=== PATIENT | female | born 1985 | race Native Hawaiian/Other Pacific Islander ===

== ENCOUNTER 2018-05-31 17:07 | Observation (INO) ==
[2018-05-31] MEDS ORDERED: Famotidine PF Inj 20 MG/2 ML Vial IV.PUSH ONE (18:31)
[2018-05-31 19:19] LABS: Hematocrit 40.3 % (35.0-46.0); Hemoglobin 13.5 gm/dL (11.6-15.3); Mean Corpuscular HGB Conc 33.4 % (32.0-36.0); Mean Corpuscular Hemoglobin 30.2 pg (27.0-34.0); Mean Corpuscular Volume 90.4 fL (80.0-100.0); Mean Platelet Volume 10.2 fL (7.0-11.0); Platelet Count 189 th/mm3 (150-450); Red Blood Count 4.46 mil/mm3 (4.00-5.30); Red Cell Distribution Width 11.6 % (11.6-17.2); White Blood Count 7.1 th/mm3 (4.0-11.0)
[2018-05-31] MEDS: Sod Chloride 0.9% Inj 1,000 ML IV.SIG SCH ×2 (19:24→19:54)
[2018-05-31 19:25] LABS: Chloride 106 meq/L (98-107); Potassium 3.9 meq/L (3.5-5.1); Sodium 137 meq/L (136-145)
[2018-05-31 19:29] LABS: Albumin 3.8 g/dL (3.4-5.0); Anion Gap 6 meq/L (5-15); Blood Urea Nitrogen 5 mg/dL (7-18); Calcium 8.8 mg/dL (8.5-10.1); Carbon Dioxide 25.2 meq/L (21.0-32.0); Glucose,Random 101 mg/dL (74-106); Lipase 126 U/L (73-393)
[2018-05-31 19:32] LABS: Alanine Aminotransferase 15 U/L (10-53); Aspartate Aminotransferase 12 U/L (15-37); Glomerular Filtration Rate Greater Than 89 mL/min (>89)
[2018-05-31 19:34] LABS: Total Protein 7.7 g/dL (6.4-8.2)
[2018-05-31 19:35] LABS: Alkaline Phosphatase 54 U/L (45-117)
[2018-05-31 20:08] LABS: Bilirubin,Urine Negative (Negative); Clarity,Urine Clear (Clear); Color,Urine Yellow (Yellw/Straw); Glucose,Urine (UA) Negative (Negative); Leukocyte Esterase,Urine Negative (Negative); Nitrite,Urine Negative (Negative); Specific Gravity,Urine Less/Equal 1.005 (1.002-1.035); Urobilinogen,Urine 0.2 mg/dL (Less than 2)
[2018-05-31 20:12] LABS: WBC,Urine 0-5 /hpf (0-5)
[2018-05-31 20:13] LABS: Squamous Epithelial Cell,Urine 0-5 /hpf (0-5)
--- NOTE | 2018-05-31 20:15 | ED ---
HPI General Chief complaint: Nausea/Vomiting/Diarrhea Stated complaint: weakness/ n/v/d Time Seen by Provider: 05/31/18 18:22 Source: patient, family and old records reviewed Limitations: language barrier History of Present Illness HPI Narrative: Patient is a 32-year-old female who presents with complaint of nausea and vomiting almost daily for the last 1-2 weeks and watery diarrhea for the last 2 days. She has had some epigastric pain with this as well. This is her fourth visit to the emergency department in the last 2 weeks for the symptoms. At one time she was admitted and had an endoscopy done by Dr. Hill which showed gastritis. She was here several days ago where she had a CT which was unremarkable. MD complaint: Reports nausea, vomiting and diarrhea Onset (ago): week(s) Description of Vomiting: food contents and watery Description of Diarrhea: watery Associated Abdominal Pain: Yes Location of pain: Reports epigastric Severity: mild Quality: Reports aching Pain Consistency: intermittent Relieving factors: none Associated symptoms: Reports dysuria and fatigue Related Data Home Medications Medication Instructions Recorded Confirmed omeprazole magnesium [Prilosec OTC] 20 mg PO DAILY 05/31/18 05/31/18 Allergies Allergy/AdvReac Type Severity Reaction Status Date / Time No Known Allergies Allergy Verified 05/31/18 17:17 Review of Systems ROS: all other systems reviewed are negative [facility] Medical History Medical History Patient denies medical problems (Acute) Surgical History Surgical History No history of previous surgery (Acute) Social History Social History Substance History: No History of Abuse Second Hand Smoke Exposure: No Smoking Status: Never smoker How Often Do You Have a Drink Containing Alcohol: Never Recent Travel in [facility] [[email or web address]] within the Last 8 Weeks: No Recent Out of Country Travel within the Last 8 Weeks: No Immunization History Tetanus Immunization: Unsure Exam Narrative Exam Narrative: GENERAL: Chronically but not acutely ill appearing female in no acute distress SKIN: Focused skin assessment warm/dry. HEAD: Atraumatic. Normocephalic. EYES: Pupils equal and round. No scleral icterus. No injection or drainage. ENT: No nasal bleeding or discharge. Mucous membranes pink and moist. NECK: Trachea midline. No JVD. CARDIOVASCULAR: Regular rate and rhythm. No murmur appreciated. Intact and equal peripheral pulses. RESPIRATORY: No accessory muscle use. Clear to auscultation. Breath sounds equal bilaterally. GASTROINTESTINAL: Abdomen soft, non-tender, nondistended. Hepatic and splenic margins not palpable. No CVA tenderness. MUSCULOSKELETAL: No obvious deformities. No clubbing. No cyanosis. No edema. NEUROLOGICAL: Awake and alert. No obvious cranial nerve deficits. Motor grossly within normal limits. PSYCHIATRIC: Appropriate mood and affect; insight and judgment normal. Course Initial Documented Vital Signs Temperature 98.1 F 05/31/18 17:18 Pulse Rate 92 H 05/31/18 17:18 Respiratory Rate 16 05/31/18 17:18 Blood Pressure 113/62 05/31/18 17:18 Pulse Oximetry 99 05/31/18 17:18 Last Documented Vital Signs Temperature 98.1 F 05/31/18 17:18 Pulse Rate 90 05/31/18 20:57 Respiratory Rate 18 05/31/18 20:57 Blood Pressure 110/75 05/31/18 20:57 Pulse Oximetry 99 05/31/18 20:57 Medical Decision Making MDM Narrative Medical decision making narrative: Patient is a 32-year-old female who presents with complaint of persistent nausea and vomiting for the last 1-2 weeks now with diarrhea for the last 2 days. She is afebrile and hemodynamically stable. She has been given Zofran and 2 L of fluid after which she also required Reglan. Labs are relatively unremarkable. I spoke with her drying unit felting machine operator , Dr. Hill, who thought she should probably be admitted for rehydration. I spoke with Dr. Alvarez, hospitalist field service consultant, who agreed to the admission. Medical Screen Exam Complete: Yes Emergency Medical Condition: Yes Medical Records Medical records reviewed: Yes I reviewed the patient's medical records. Lab Data Lab results reviewed: Yes I reviewed the patient's lab results. Result diagrams: 05/31/18 19:10 05/31/18 19:10 POC Results POC Urine Results Negative Lab Results 05/31/18 05/31/18 05/31/18 Range/Units 19:10 19:10 19:45 WBC 7.1 (4.0-11.0) th/mm3 RBC 4.46 (4.00-5.30) mil/mm3 Hgb 13.5 (11.6-15.3) gm/dL Hct 40.3 (35.0-46.0) % MCV 90.4 (80.0-100.0) fL MCH 30.2 (27.0-34.0) pg MCHC 33.4 (32.0-36.0) % RDW 11.6 (11.6-17.2) % Plt Count 189 (150-450) th/mm3 MPV 10.2 (7.0-11.0) fL Sodium 137 (136-145) meq/L Potassium 3.9 (3.5-5.1) meq/L Chloride 106 (98-107) meq/L Carbon Dioxide 25.2 (21.0-32.0) meq/L Anion Gap 6 (5-15) meq/L BUN 5 L (7-18) mg/dL Creatinine 0.60 (0.50-1.00) mg/dL Estimated GFR Greater than 89 (>89) mL/min Random Glucose 101 (74-106) mg/dL Calcium 8.8 (8.5-10.1) mg/dL Total Bilirubin 0.4 (0.2-1.0) mg/dL AST 12 L (15-37) U/L ALT 15 (10-53) U/L Alkaline Phosphatase 54 (45-117) U/L Total Protein 7.7 (6.4-8.2) g/dL Albumin 3.8 (3.4-5.0) g/dL Lipase 126 (73-393) U/L Urine Color Yellow (Yellw/Straw) Urine Clarity Clear (Clear) Urine pH 6.0 (5.0-8.5) Ur Specific [place] Less/equal 1.005 (1.002-1.035) Urine Protein Negative (Neg-Trace) mg/dL Urine Glucose (UA) Negative (Negative) mg/dL Urine Ketones Trace H (Negative) mg/dL Urine Occult Blood Moderate H (Negative) Urine Nitrate Negative (Negative) Urine Bilirubin Negative (Negative) Urine Urobilinogen 0.2 (Less than 2) mg/dL Ur Leukocyte Esterase Negative (Negative) Urine RBC 4-15 H (0-3) /hpf Urine WBC 0-5 (0-5) /hpf Ur Squamous Epith Cells 0-5 (0-5) /hpf Micro UA Comment Culture not ind Ur Microscopic Review Microscopic reviewed Urine Culture Comments Culture not ind Discharge Plan Discharge Disposition Patient Disposition: ED Admit(ED Internal Use Only) Discharge Condition Condition: Stable Discharge Order Discharge Orders: ED Use Only Admit Order (Routine); Ordered 05/31/18 Ordered By: Audrey Morejon Discharge Details Diagnosis: Nausea & vomiting Physicians Team ED Provider: Audrey Morejon Primary Care Provider: Primary Care Stefani Wood Attending Provider: Erin Alvarez Other Providers: Jacky Horton Discharge Interventions Interventions: Vital Signs Last Done: 05/31/18 20:57 Status ED Status: Admitted Observation Patient
[2018-05-31] MEDS ORDERED: Aluminum/Magnesium/Simethacone Susp 30 ML UDC PO ONE (20:42)
[2018-05-31] MEDS ORDERED: Bisacodyl 10 MG Supp RECTAL PRN (20:55)
[2018-05-31] MEDS ORDERED: Acetaminophen 325 MG Tablet PO PRN (20:55)
[2018-05-31] MEDS ORDERED: Morphine Sulfate Inj 2 MG/ML Vial IV.PUSH PRN (20:55)
[2018-05-31] MEDS: Sod Chloride 0.9% Inj 1,000 ML IV.CONT SCH (21:29)
[2018-05-31] MEDS: Pantoprazole Inj 40 MG Vial IV.PUSH SCH (21:30)
[2018-06-01 06:24] LABS: Baso # (Auto) 0.1 th/mm3 (0.0-0.2); Baso % (Auto) 0.8 % (0.0-2.0); Eos % (Auto) 0.3 % (0.0-4.0); Hematocrit 34.2 % (35.0-46.0); Hemoglobin 11.7 gm/dL (11.6-15.3); Lymph # (Auto) 1.7 th/mm3 (1.0-4.8); Lymph % (Auto) 21.3 % (9.0-44.0); Mean Corpuscular HGB Conc 34.1 % (32.0-36.0); Mean Corpuscular Hemoglobin 31.2 pg (27.0-34.0); Mean Corpuscular Volume 91.7 fL (80.0-100.0); Mean Platelet Volume 11.6 fL (7.0-11.0); Mono # (Auto) 0.6 th/mm3 (0.0-0.9); Mono % (Auto) 7.4 % (0.0-8.0); Neut # (Auto) 5.5 th/mm3 (1.8-7.7); Neut % (Auto) 70.2 % (16.0-70.0); Platelet Count 150 th/mm3 (150-450); Red Blood Count 3.73 mil/mm3 (4.00-5.30); Red Cell Distribution Width 12.1 % (11.6-17.2); White Blood Count 7.9 th/mm3 (4.0-11.0)
[2018-06-01 06:26] LABS: Chloride 113 meq/L (98-107); Potassium 3.8 meq/L (3.5-5.1); Sodium 141 meq/L (136-145)
[2018-06-01 07:09] LABS: Alanine Aminotransferase 12 U/L (10-53); Alkaline Phosphatase 43 U/L (45-117); Anion Gap 5 meq/L (5-15); Aspartate Aminotransferase 12 U/L (15-37); Blood Urea Nitrogen 2 mg/dL (7-18); Calcium 7.8 mg/dL (8.5-10.1); Carbon Dioxide 23.4 meq/L (21.0-32.0); Glomerular Filtration Rate Greater Than 89 mL/min (>89); Glucose,Random 100 mg/dL (74-106)
[2018-06-01 07:10] LABS: Albumin 3.1 g/dL (3.4-5.0)
[2018-06-01] MEDS: Pantoprazole Inj 40 MG Vial IV.PUSH SCH ×2 (08:05→21:09)
[2018-06-01] MEDS: Sod Chloride 0.9% Inj 1,000 ML IV.CONT SCH ×2 (08:10→18:29)
--- NOTE | 2018-06-01 08:10 | P.CONGI ---
History of Present Illness Consult date: 06/01/18 Consult reason: Nausea vomiting Chief complaint: Intractable N/V History of Present Illness: Patient is a pleasant 32-year-old female who is being seen for evaluation of nausea and vomiting her at bedside providing most of the information apparently she started off with flulike symptoms about 2 weeks ago and this persisted and intensified she was seen by our office late last week and underwent an upper endoscopy according to the she had gastritis but not enough findings to explain her intractable nausea and vomiting and apparently she ended up in the emergency room on Friday she had a CT of the abdomen that was unremarkable and again last night this time with complaints of nausea and vomiting and excessive diarrhea the tells me over the past 2 days she has had about 40 bowel movements all loose liquidy and the past couple of days they have seen some blood but not extensively the patient also reports occasional chills but no fever she denies any abdominal pain but she does have upper abdominal discomfort with some heartburn and reflux she has been taking Prilosec which has not really helped a whole lot Review of Systems A 12 system review is otherwise unremarkable [facility] - History History Provided By: Patient, Significant Other - Medical History Medical History: Medical History (Last Reviewed 05/31/18 @ 20:14 by Audrey Morejon MD) Patient denies medical problems - Surgical History Surgical History: Surgical History (Last Reviewed 05/31/18 @ 20:14 by Audrey Morejon MD) No history of previous surgery - Tobacco History Second Hand Smoke Exposure: No Smoking Status: Never smoker - Alcohol History How Often Do You Have a Drink Containing Alcohol: Never - Substance Use History Substance History: No History of Abuse - Travel History Recent Travel in the [place] Within the Last 8 Weeks: No Recent Travel Out of the Country Within the Last 8 Weeks: No - Immunization History Tetanus Immunization: Unsure Medications and Allergies Active Medications: Active Medications Acetaminophen (Tylenol) 650 mg PO Q4H PRN PRN Reason: Temp > 100.4 Al Hydroxide/Mg Hydroxide (Milk Of Magnesia Liq) 30 ml PO Q12H PRN PRN Reason: Mild Constipation Bisacodyl (Dulcolax Supp) 10 mg RECTAL DAILY PRN PRN Reason: SEVERE CONSITIPATION Sodium Chloride (Ns Inj) 1,000 mls @ 100 mls/hr IV.CONT .Q10H ERIN Last Infusion: 06/01/18 07:00 Dose: 100 mls/hr Lactulose (Lactulose Liq) 30 ml PO DAILY PRN PRN Reason: SEVERE CONSITIPATION Morphine Sulfate (Morphine Inj) 2 mg IV.PUSH Q4H PRN PRN Reason: PAIN SCALE 6 TO 10 Ondansetron HCl (Zofran Inj) 4 mg IV.PUSH Q6H PRN PRN Reason: NAUSEA OR VOMITING Last Admin: 06/01/18 03:29 Dose: 4 mg Pantoprazole Sodium (Protonix Inj) 40 mg IV.PUSH Q12H ERIN Last Admin: 05/31/18 21:30 Dose: 40 mg Prochlorperazine Edisylate (Compazine Inj) 10 mg IV.PUSH Q6H PRN PRN Reason: NAUSEA/VOMITING Sennosides (Senokot) 17.2 mg PO Q12H PRN PRN Reason: Moderate Constipation Sodium Chloride (Ns Flush) 2 ml IV.FLUSH BID ERIN Last Admin: 06/01/18 08:03 Dose: Not Given Sodium Chloride (Ns Flush) 2 ml IV.FLUSH PRN PRN PRN Reason: FLUSH AFTER USING IV ACCESS Allergies Allergy/AdvReac Type Severity Reaction Status Date / Time No Known Allergies Allergy Verified 05/31/18 17:17 Home Medications Medication Instructions Recorded Confirmed Type omeprazole magnesium [Prilosec OTC] 20 mg PO DAILY 05/31/18 05/31/18 History Exam Vital signs: Vital Signs 05/31/18 17:18 05/31/18 18:46 05/31/18 20:57 Temperature 98.1 F Pulse Rate 92 H 76 90 Respiratory Rate 16 16 18 Blood Pressure 113/62 108/77 110/75 Pulse Oximetry 99 100 99 05/31/18 22:33 06/01/18 00:00 Temperature 97.6 F Pulse Rate 88 88 Respiratory Rate 18 16 Blood Pressure 112/70 108/62 Pulse Oximetry 98 99 Intake & Output 05/31/18 06/01/18 06/01/18 18:59 06:59 18:59 Intake Total 1999 823 / 823 Balance 1999 823 / 823 Weight 49.3 kg 51.1 kg Intake: IV 1999 823 / 823 NS Inj 1,000 ML @ 100 mls/hr IV 823 / 823 .CONT .Q10H ERIN Rx#:[id number] NS Inj 1,000 ML @ 2000 mls/hr 1999 IV.SIG Q30M [facility] Rx#:[id number] Other: Date of Last Bowel Movement 05/31/18 06/01/18 # Bowel Movements 1 Weight On Admission 51.1 kg - Constitutional no acute distress - Routine HEENT Exam Head: Present: normocephalic, atraumatic Eye: Present: EOMI, PERRL, conjunctivae pink. Absent: conjunctival icterus ENT: Present: mucous membranes moist - Routine Neck Exam Present: supple. Absent: JVD, carotid bruit - Routine Respiratory Exam Present: CTA bilaterally. Absent: accessory muscle use - Routine Cardiovascular Exam Present: RRR, S1, S2. Absent: murmur, gallop, rubs - Routine Abdominal Exam Present: soft, normoactive bowel sounds. Absent: tenderness, distended, rebound , organomegaly - Routine Extremities Exam Absent: cyanosis, clubbing, edema - Routine Skin Exam Present: dry, warm. Absent: cyanosis - Routine Neurological Exam Present: alert, oriented X3 Results - Labs CBC & Chem 7: 06/01/18 05:55 06/01/18 05:55 Labs: Laboratory Results - last 24 hr 05/31/18 05/31/18 05/31/18 19:10 19:10 19:45 CBC w Diff WBC 7.1 RBC 4.46 Hgb 13.5 Hct 40.3 MCV 90.4 MCH 30.2 MCHC 33.4 RDW 11.6 Plt Count 189 MPV 10.2 Neut % (Auto) Lymph % (Auto) [place] % (Auto) Eos % (Auto) Baso % (Auto) Neut # (Auto) Lymph # (Auto) [place] # (Auto) Eos # (Auto) Baso # (Auto) WBC Differential Differential Comment Sodium 137 Potassium 3.9 Chloride 106 Carbon Dioxide 25.2 Anion Gap 6 BUN 5 L Creatinine 0.60 Estimated GFR Greater than 89 Random Glucose 101 Calcium 8.8 Total Bilirubin 0.4 AST 12 L ALT 15 Alkaline Phosphatase 54 Total Protein 7.7 Albumin 3.8 Lipase 126 Urine Color Yellow Urine Clarity Clear Urine pH 6.0 Ur Specific [place] Less/equal 1.005 Urine Protein Negative Urine Glucose (UA) Negative Urine Ketones Trace H Urine Occult Blood Moderate H Urine Nitrate Negative Urine Bilirubin Negative Urine Urobilinogen 0.2 Ur Leukocyte Esterase Negative Urine RBC 4-15 H Urine WBC 0-5 Ur Squamous Epith Cells 0-5 Micro UA Comment Culture not ind Ur Microscopic Review Microscopic reviewed Urine Culture Comments Culture not ind Eosinophil Stool Smear 05/31/18 06/01/18 06/01/18 21:30 05:55 05:55 CBC w Diff Auto diff final WBC 7.9 RBC 3.73 L Hgb 11.7 Hct 34.2 L MCV 91.7 MCH 31.2 MCHC 34.1 RDW 12.1 Plt Count 150 MPV 11.6 H Neut % (Auto) 70.2 H Lymph % (Auto) 21.3 [place] % (Auto) 7.4 Eos % (Auto) 0.3 Baso % (Auto) 0.8 Neut # (Auto) 5.5 Lymph # (Auto) 1.7 [place] # (Auto) 0.6 Eos # (Auto) 0.0 Baso # (Auto) 0.1 WBC Differential . Differential Comment . Sodium 141 Potassium 3.8 Chloride 113 H Carbon Dioxide 23.4 Anion Gap 5 BUN 2 L Creatinine 0.54 Estimated GFR Greater than 89 Random Glucose 100 Calcium 7.8 L D Total Bilirubin 0.4 AST 12 L ALT 12 Alkaline Phosphatase 43 L Total Protein 6.0 L D Albumin 3.1 L D Lipase Urine Color Urine Clarity Urine pH Ur Specific [place] Urine Protein Urine Glucose (UA) Urine Ketones Urine Occult Blood Urine Nitrate Urine Bilirubin Urine Urobilinogen Ur Leukocyte Esterase Urine RBC Urine WBC Ur Squamous Epith Cells Micro UA Comment Ur Microscopic Review Urine Culture Comments Eosinophil Stool Smear None seen Assessment and Plan - Plan Patient presenting with complaints of nausea vomiting and lately diarrhea Recent upper endoscopy reveals gastritis otherwise unremarkable CT of the abdomen is negative also the gallbladder and blood work is also unremarkable At this point we will pursue stool studies to further evaluate and investigate the diarrhea We will obtain a small bowel follow-through And we will consider a colonoscopy if all else is negative In the meanwhile continue with current supportive care with hydration correct electrolytes and treatment with anti-emetics
--- NOTE | 2018-06-01 10:24 | P.HPIM ---
History of Present Illness Primary Care Physician: No Primary Care Physician Chief Complaint: Abdominal pain, nausea, vomiting, diarrhea History of Present Illness: 32-year-old female with rather complicated case. Patient does not speak much Irish. Most information was taken from the at bedside. Apparently about 2 weeks ago the patient had an upper respiratory virus in which they use [id number] cold medicine and patient tolerated the treatment well and then about 3 days after the initial onset of the upper respiratory symptoms she had an episode of nausea vomiting and [place] better after that. However, patient started developing generalized abdominal pain with nausea, vomiting and this persisted where she is visited the ER a few times had multiple workups done. Patient also had endoscopy performed by Dr. Hill. Which it was indicated that patient had gastritis. Patient did not improved. Having difficulty eating, drinking. Had persistent and intractable nausea, vomiting and started developing diarrhea. Is indicated the patient had at least 50 bowel movements over the last 48 hours. The patient came back to the emergency department for evaluation is recommended that the patient be observed in the hospital for further evaluation and management S neurologist was consulted for further recommendations. Upon evaluating the patient she is sitting up in bed. Looks mildly uncomfortable. Appears to be belching a lot. There is no indication of any hematemesis, hematochezia, melena. No recent travel. Review of Systems Review of Systems: all other systems reviewed are negative Gastrointestinal: Reports abdominal pain, Reports belching, Reports diarrhea and Reports vomiting PMFSH Medical History Medical History Patient denies medical problems (Acute) Surgical History Surgical History No history of previous surgery (Acute) Social History Social History Substance History: No History of Abuse Second Hand Smoke Exposure: No Smoking Status: Never smoker How Often Do You Have a Drink Containing Alcohol: Never Recent Travel in [facility] within the Last 8 Weeks: No Recent Out of Country Travel within the Last 8 Weeks: No Immunization History Tetanus Immunization: Unsure Medications and Allergies Allergies Allergy/AdvReac Type Severity Reaction Status Date / Time No Known Allergies Allergy Verified 05/31/18 17:17 Home Medications Medication Instructions Recorded Confirmed Type omeprazole magnesium [Prilosec OTC] 20 mg PO DAILY 05/31/18 05/31/18 History Active Medications: Active Medications Acetaminophen (Tylenol) 650 mg PO Q4H PRN PRN Reason: Temp > 100.4 Al Hydroxide/Mg Hydroxide (Milk Of Magnesia Liq) 30 ml PO Q12H PRN PRN Reason: Mild Constipation Bisacodyl (Dulcolax Supp) 10 mg RECTAL DAILY PRN PRN Reason: SEVERE CONSITIPATION Sodium Chloride (Ns Inj) 1,000 mls @ 100 mls/hr IV.CONT .Q10H [facility] Last Admin: 06/01/18 08:10 Dose: 100 mls/hr Lactulose (Lactulose Liq) 30 ml PO DAILY PRN PRN Reason: SEVERE CONSITIPATION Morphine Sulfate (Morphine Inj) 2 mg IV.PUSH Q4H PRN PRN Reason: PAIN SCALE 6 TO 10 Ondansetron HCl (Zofran Inj) 4 mg IV.PUSH Q6H PRN PRN Reason: NAUSEA OR VOMITING Last Admin: 06/01/18 03:29 Dose: 4 mg Pantoprazole Sodium (Protonix Inj) 40 mg IV.PUSH Q12H [facility] Last Admin: 06/01/18 08:05 Dose: 40 mg Prochlorperazine Edisylate (Compazine Inj) 10 mg IV.PUSH Q6H PRN PRN Reason: NAUSEA/VOMITING Sennosides (Senokot) 17.2 mg PO Q12H PRN PRN Reason: Moderate Constipation Sodium Chloride (Ns Flush) 2 ml IV.FLUSH BID [facility] Last Admin: 06/01/18 08:03 Dose: Not Given Sodium Chloride (Ns Flush) 2 ml IV.FLUSH PRN PRN PRN Reason: FLUSH AFTER USING IV ACCESS Physical Exam Vital signs: Vital Signs 05/31/18 17:18 05/31/18 18:46 05/31/18 20:57 Temperature 98.1 F Pulse Rate 92 H 76 90 Respiratory Rate 16 16 18 Blood Pressure 113/62 108/77 110/75 Pulse Oximetry 99 100 99 05/31/18 22:33 06/01/18 00:00 06/01/18 08:00 Temperature 97.6 F 98.0 F Pulse Rate 88 88 76 Respiratory Rate 18 16 18 Blood Pressure 112/70 108/62 108/71 Pulse Oximetry 98 99 98 Intake & Output 05/31/18 06/01/18 06/01/18 18:59 06:59 18:59 Intake Total 1999 Balance 1999 Weight 49.3 kg 51.1 kg Intake: IV 1999 NS Inj 1,000 ML @ 100 mls/hr IV 1822 .CONT .Q10H [facility] Rx#:[id number] NS Inj 1,000 ML @ 2000 mls/hr 1999 IV.SIG Q30M [facility] Rx#:[id number] Other: Date of Last Bowel Movement 05/31/18 06/01/18 06/01/18 # Bowel Movements 1 2 Weight On Admission 51.1 kg Narrative: GENERAL: Well-developed, well-nourished, patient appears to be in mild abdominal discomfort. Sitting up in bed with increased belching. alert and orientated HEENT: Head is normocephalic without any lesions or masses noted. Facial features are symmetric. Eyes: Pupils equal round reactive to light. Extraocular muscles are intact. Conjunctivae were clear. Oropharyngeal: Pharynx without any erythema edema. Tongue is midline without deviation. Buccal mucosa is moist without any masses or lesions NECK: Supple without any masses. Trachea midline no deviation. No JVD, no bruits are appreciated CARDIAC: Regular rhythm, regular rate. S1/S2 are heard. No murmurs gallops or rubs. LUNGS: Clear to auscultation bilaterally. No wheeze, rhonchi or rales. No use of accessory muscles on inspiration or expiration. ABDOMEN: Soft, mild tenderness noted in the right lower quadrant. Nondistended. Bowel sounds heard in all 4 quadrants. No organomegaly or masses. Negative rebound, negative guarding EXTREMITIES: No edema, pulses are equal bilaterally. No cyanosis or clubbing NEUROLOGY: Mood and affect appear appropriate. Cranial nerves II through XII grossly intact. Muscle strength 5/5 in upper and lower extremities bilaterally. Deep tendon reflexes are 2+ in upper and lower extremities bilaterally. Results Labs CBC & Chem 7: 06/01/18 05:55 06/01/18 05:55 Caprini VTE Risk Assessment Caprini VTE Risk Assessment: No/Low Risk (score <= 1) Caprini Risk Assessment Model: Point Value = 1 Point Value = 2 Point Value = 3 Point Value = 5 Age 41-60 Minor surgery BMI > 25 kg/m2 Swollen legs Varicose veins or History of unexplained or recurrent spontaneous Oral contraceptives or hormone replacement Sepsis (< 1 month) Serious lung disease, including pneumonia (< 1 month) Abnormal pulmonary function Acute myocardial infarction Congestive heart failure (< 1 month) History of inflammatory bowel disease Medical patient at bed rest Age 61-74 Arthroscopic surgery Major open surgery (> 45 min) Laparoscopic surgery (> 45 min) Malignancy Confined to bed (> 72 hours) Immobilizing plaster cast Central venous access Age >= 75 History of VTE Family history of VTE Factor V Leiden Prothrombin [id number] Lupus anticoagulant Anticardiolipin antibodies Elevated serum homocysteine Heparin-induced thrombocytopenia Other congenital or acquired thrombophilia Stroke (< 1 month) Elective arthroplasty Hip, pelvis, or leg fracture Acute spinal cord injury (< 1 month) Prophylaxis Regimen: Total Risk Factor Score Risk Level Prophylaxis Regimen 0-1 Low Early ambulation 2 Moderate Order ONE of the following: *Sequential Compression Device (SCD) *Heparin 5000 units SQ BID 3-4 Higher Order ONE of the following medications: *Heparin 5000 units SQ TID *Enoxaparin/Lovenox 40 mg SQ daily (WT < 150 kg, CrCl > 30 mL/min) *Enoxaparin/Lovenox 30 mg SQ daily (WT < 150 kg, CrCl > 10-29 mL/min) *Enoxaparin/Lovenox 30 mg SQ BID (WT < 150 kg, CrCl > 30 mL/min) AND/OR *Sequential Compression Device (SCD) 5 or more Highest Order ONE of the following medications: *Heparin 5000 units SQ TID (Preferred with Epidurals) *Enoxaparin/Lovenox 40 mg SQ daily (WT < 150 kg, CrCl > 30 mL/min) *Enoxaparin/Lovenox 30 mg SQ daily (WT < 150 kg, CrCl > 10-29 mL/min) *Enoxaparin/Lovenox 30 mg SQ BID (WT < 150 kg, CrCl > 30 mL/min) AND *Sequential Compression Device (SCD) Assessment and Plan Plan Abdominal pain with intractable nausea, vomiting, diarrhea Patient has had upper endoscopy performed with gastritis CT scan, liver ultrasound, all have been unremarkable for any etiology Laboratory studies do not indicate any abnormality Stool studies for any infectious process has been requested by parking patroller Small bowel follow-through has been requested to evaluate for any etiology of her symptoms If workup is negative, parking patroller anticipate performing colonoscopy Continue IV fluids, antiemetics DVT prevention Sequential compression devices Discussed Condition With: Patient, , Dr. Horton, Dr. Peña H&P: Quality VTE Deep Vein Thrombosis/Pulmonary Embolism Present on Admission: No
--- NOTE | 2018-06-01 14:10 | FL ---
EXAM DATE: 06/01/2018 1:49 PM EST AGE/SEX: 32 years / Female INDICATIONS: Patient presents with nausea and vomiting for 2 weeks, no prior history. CLINICAL DATA: This is the patient's initial encounter. Patient reports that signs and symptoms have been present for 2 weeks and indicates a pain score of 7/10. MEDICAL/SURGICAL HISTORY: None. None. COMPARISON: [facility], CT ABDOMEN & PELVIS W/O CONTRAST, 05/29/2018. . FLUORO TIME: 3.4 minutes. IMAGE COUNT: 11 RADIATION DOSE: 9.37 DAP FINDINGS: Preliminary film is unremarkable. Examination of the swallowing function demonstrates no evidence of aspiration or penetration. The cecilia dy of the esophagus is unremarkable. No reflux or hiatal hernia is identified. Examination of the stomach demonstrates no evidence of intraluminal mass or extrinsic compression. T he gastric volume appears normal and there are no findings of ulceration. The mucosal pattern appear s normal. The duodenal bulb and sweep appear benign with a single tiny diverticulum seen in the third portion. The visualized small bowel is unremarkable. Small bowel transit is subjectively rapid and barium con trast has reached the rectum as of the 30 minute KUB CONCLUSION: Focally unremarkable upper GI and small bowel series with subjectively rapid bowel transit Electronically signed by: Héctor Crisostomo MD Board Certified Radiologist 06/01/2018 2:09 PM EST
[2018-06-01] MEDS ORDERED: PEG 3350/E-Lyte Soln 4000 ML Bottle PO ONE (21:00)
[2018-06-02] MEDS: Sod Chloride 0.9% Inj 1,000 ML IV.CONT SCH ×2 (04:48→15:48)
--- NOTE | 2018-06-02 07:37 | P.PCN ---
Date of procedure: 06/02/18 Pre-op diagnosis: Diarrhea Procedure: PROCEDURE PERFORMED Colonoscopy with biopsy PROCEDURE: The procedure, risks and benefits were discussed with Patient/POA and informed consent was obtained. Anesthesia sedated Patient with Diprivan. Patient was placed in the left lateral decubitus position. Colonoscopy: The Pentax videoscope was introduced through the rectum and advanced to cecum where the ileocecal valve and appendiceal orifice were identified. Retroflexion was performed in the rectum. Colonic prep was fair FINDINGS: Colonic withdrawal time greater than 6 minutes. As the scope was slowly withdrawn colonic mucosa was carefully inspected the scope was also advanced into the terminal ileum there was some mild patchy erythema noted in the terminal ileum of unclear significance this was biopsied otherwise colonoscopy was unremarkable within normal limits all the way through from cecum to rectum with no mucosal abnormalities random biopsies were taken from the ascending and descending colon retroflexion was also performed in the rectum and this was unremarkable and so was rectal examination ESTIMATED BLOOD LOSS: None SPECIMENS REMOVED: Terminal ileal biopsies and colon biopsies COMPLICATIONS: None IMPRESSION: Mild patchy erythema of the terminal ileum of unclear significance Normal colonoscopy PLAN: Await biopsies Advance diet as tolerated Continue with antiemetics and antidiarrheal medications such as Imodium or Lomotil Follow-up with GI post discharge If patient is able to tolerate intake she may be discharged from a GI perspective to follow-up in clinic Anesthesia: BILLY Surgeon: Jacky Horton Condition: stable Disposition: floor
[2018-06-02] MEDS: Pantoprazole Inj 40 MG Vial IV.PUSH SCH ×2 (08:36→22:45)
--- NOTE | 2018-06-02 10:10 | P.PNIM ---
Subjective Interval history: Follow up ab pain, nausea and vomiting. Patient seen and examined, at bedside and assisting with translating. States she feels nauseous after colonoscopy and attempting PO intake. RN to give antiemetics. OK to DC if tolerating PO intake. Still complaints of some epigastric burning. VSS. Physical Exam Vital signs: Vital Signs 06/01/18 11:52 06/01/18 16:00 06/01/18 20:00 Temperature 97.7 F 97.8 F 98.3 F Pulse Rate 73 96 H 76 Respiratory Rate 18 18 18 Blood Pressure 119/71 112/70 116/75 Pulse Oximetry 97 98 98 06/02/18 00:00 06/02/18 06:41 06/02/18 07:39 Temperature 97.6 F 98.2 F 98.3 F Pulse Rate 67 113 H 60 Respiratory Rate 18 20 16 Blood Pressure 121/78 123/77 108/73 Pulse Oximetry 97 99 97 06/02/18 07:44 06/02/18 07:51 06/02/18 08:40 Temperature 96.0 F L Pulse Rate 59 L 57 L 60 Respiratory Rate 16 16 14 Blood Pressure 114/69 108/69 109/52 L Pulse Oximetry 98 98 100 Intake & Output 06/01/18 06/02/18 06/02/18 18:59 06:59 18:59 Intake Total 2735 / 2735 4000 / 4000 800 / 800 Balance 2735 / 2735 4000 / 4000 800 / 800 Weight 55.1 kg Intake: IV 2735 / 2735 1000 / 1000 NS Inj 1,000 ML @ 100 mls/hr IV 2735 / 2735 1000 / 1000 .CONT .Q10H [facility] Rx#:[id number] Oral 3000 / 3000 Anesthesia Amount 800 / 800 Other: # Voids 8 4 Date of Last Bowel Movement 06/01/18 06/01/18 # Bowel Movements 10 7 Narrative: GENERAL: Well-developed, well-nourished, lying in bed with ab pain and nausea. HEENT: Head is normocephalic without any lesions or masses noted. Facial features are symmetric. Eyes: Pupils equal round reactive to light. Extraocular muscles are intact. Conjunctivae were clear. Oropharyngeal: Pharynx without any erythema edema. Tongue is midline without deviation. Buccal mucosa is moist without any masses or lesions NECK: Supple without any masses. Trachea midline no deviation. No JVD, no bruits are appreciated CARDIAC: Regular rhythm, regular rate. S1/S2 are heard. No murmurs gallops or rubs. LUNGS: Clear to auscultation bilaterally. No wheeze, rhonchi or rales. No use of accessory muscles on inspiration or expiration. ABDOMEN: Soft, mild tenderness noted in the right lower quadrant. Nondistended. Bowel sounds heard in all 4 quadrants. No organomegaly or masses. Negative rebound, negative guarding EXTREMITIES: No edema, pulses are equal bilaterally. No cyanosis or clubbing NEUROLOGY: Mood and affect appear appropriate. Cranial nerves II through XII grossly intact. Muscle strength 5/5 in upper and lower extremities bilaterally. Deep tendon reflexes are 2+ in upper and lower extremities bilaterally. Results Labs CBC & Chem 7: 06/01/18 05:55 06/01/18 05:55 Labs: Microbiology 06/01/18 09:46 Stool Enteric Pathogens (PCR) - Final No enteric pathogens detected by PCR (No Salmonella sp., Shigella sp., Campylobacter sp., Yersinia enterocolitica, Vibrio sp., Norovirus, or EHEC (Shiga Toxin 1 or Shiga Toxin 2) detected. 05/31/18 21:30 Stool Stool for WBCs - Final Few WBC's Imaging Imaging: Impressions Upper GI and Small Bowel X-Ray 06/01/18 00:00 CONCLUSION: Focally unremarkable upper GI and small bowel series with subjectively rapid bowel transit Assessment and Plan Plan Abdominal pain with intractable nausea, vomiting, diarrhea Patient has had upper endoscopy performed with gastritis CT scan, liver ultrasound, all have been unremarkable for any etiology Laboratory studies do not indicate any abnormality Stool studies for any infectious process has been requested by sales and marketing engineer, pending. Small bowel follow-through negative. -Colonoscopy this morning showing Mild patchy erythema of the terminal ileum of unclear significance. If tolerating food OK to be DCd. F/u outpatient. Continue IV fluids, antiemetics DVT prevention Sequential compression devices Discussed Condition With: Patient, , Dr. Ballesteros. Progress Note: Quality VTE Deep Vein Thrombosis/Pulmonary Embolism Present on Admission: No
[2018-06-02] MEDS ORDERED: Diphenoxylate/Atropine 2.5/0.025 MG Tablet PO PRN (10:20)
[2018-06-02] MEDS ORDERED: Sucralfate 1 GM Tablet PO ONE (12:00)
[2018-06-02 12:31] VITALS: RESP 16
[2018-06-02] MEDS ORDERED: Promethazine 12.5 MG Supp RECTAL PRN (16:45)
[2018-06-03 05:09] VITALS: BP 111/70; PULSE 63; TEMP 97.4; O2SAT 100
[2018-06-03 05:23] LABS: Hematocrit 34.1 % (35.0-46.0); Hemoglobin 11.6 gm/dL (11.6-15.3); Mean Corpuscular HGB Conc 34.2 % (32.0-36.0); Mean Corpuscular Hemoglobin 30.8 pg (27.0-34.0); Mean Corpuscular Volume 90.1 fL (80.0-100.0); Mean Platelet Volume 10.9 fL (7.0-11.0); Platelet Count 178 th/mm3 (150-450); Red Blood Count 3.79 mil/mm3 (4.00-5.30); Red Cell Distribution Width 12.1 % (11.6-17.2)
[2018-06-03 05:26] LABS: Chloride 110 meq/L (98-107); Potassium 3.5 meq/L (3.5-5.1); Sodium 143 meq/L (136-145)
[2018-06-03 05:28] LABS: White Blood Count 6.3 th/mm3 (4.0-11.0)
[2018-06-03 05:32] LABS: Calcium 8.3 mg/dL (8.5-10.1)
[2018-06-03 05:33] LABS: Anion Gap 5 meq/L (5-15); Carbon Dioxide 27.6 meq/L (21.0-32.0); Glucose,Random 95 mg/dL (74-106)
[2018-06-03 05:34] LABS: Blood Urea Nitrogen 3 mg/dL (7-18)
[2018-06-03 05:36] LABS: Alanine Aminotransferase 14 U/L (10-53); Aspartate Aminotransferase 7 U/L (15-37); Glomerular Filtration Rate Greater Than 89 mL/min (>89)
[2018-06-03 05:38] LABS: Total Protein 5.9 g/dL (6.4-8.2)
[2018-06-03 05:39] LABS: Alkaline Phosphatase 44 U/L (45-117)
[2018-06-03] MEDS: Pantoprazole Inj 40 MG Vial IV.PUSH SCH (08:22)
--- NOTE | 2018-06-03 09:27 | P.DS ---
DS: Providers Date of admission: 05/31/18 20:55 Primary care physician: No Primary Care Physician Consults: 05/31/18 20:55 Consult to Gastroenterology Routine Consulting Provider: Jacky Horton Counter Stitcher:: Reinaldo Hill Patient known to:: Reinaldo Hill Reason for Consultation: Intractable NV, Pt known to Dr. Hill CONSULT FOR AM Notified:: Service Spoke with:: Shubham Date Notified:: 05/31/18 Time Notified:: 21:12 Comments:: Ordering Provider: AVEL Brief History from admission: 32-year-old female with rather complicated case. Patient does not speak much Cuban. Most information was taken from the at bedside. Apparently about 2 weeks ago the patient had an upper respiratory virus in which they use [id number] cold medicine and patient tolerated the treatment well and then about 3 days after the initial onset of the upper respiratory symptoms she had an episode of nausea vomiting and [place] better after that. However, patient started developing generalized abdominal pain with nausea, vomiting and this persisted where she is visited the ER a few times had multiple workups done. Patient also had endoscopy performed by Dr. Hill. Which it was indicated that patient had gastritis. Patient did not improved. Having difficulty eating, drinking. Had persistent and intractable nausea, vomiting and started developing diarrhea. Is indicated the patient had at least 50 bowel movements over the last 48 hours. The patient came back to the emergency department for evaluation is recommended that the patient be observed in the hospital for further evaluation and management S neurologist was consulted for further recommendations. Upon evaluating the patient she is sitting up in bed. Looks mildly uncomfortable. Appears to be belching a lot. There is no indication of any hematemesis, hematochezia, melena. No recent travel. DS: Summary This is a 32-year-old female patient who presented to the ED with abdominal pain with intractable nausea, vomiting, diarrhea. Patient has had upper endoscopy performed recently outpatient with gastritis. CT scan, liver ultrasound, all have been unremarkable for any etiology. Laboratory studies do not indicate any abnormality. Stool studies for any infectious process has been requested by it portfolio manager and negative. Small bowel follow-through negative. Colonoscopy showing Mild patchy erythema of the terminal ileum of unclear significance. Was given IV fluids and antiemetics. Tolerating p.o. intake on day of discharge. No abdominal pain, nausea or vomiting. Gastroenterology will follow patient outpatient. Patient is stable at this time and agreeable to plan. DC home. Activity as tolerated. Diet as tolerated. Rx is written. All questions answered. Stable to go home. Time Spent with Patient Total time spent providing and/or coordinating discharge services: Greater than 30 minutes Quality: VTE Deep Vein Thrombosis/Pulmonary Embolism Present on Admission: No Exam Narrative Exam Narrative: GENERAL: Well-developed, well-nourished patient in NAD. SKIN: Warm and dry. No rash. HEAD: Normocephalic. Atraumatic. EYES: Pupils equal and round. No scleral icterus. No injection or drainage. ENT: No nasal bleeding or discharge. Mucous membranes pink and moist. NECK: Supple. Trachea midline. CARDIOVASCULAR: Regular rate and rhythm. S1, S2 noted. No murmur appreciated. RESPIRATORY: No accessory muscle use. Clear to auscultation. Breath sounds equal bilaterally. GASTROINTESTINAL: Abdomen soft, non-tender, nondistended. Normoactive bowel sounds x4. MUSCULOSKELETAL: No obvious deformities. Extremities without clubbing, cyanosis , or edema. NEUROLOGICAL: Awake and alert. No obvious cranial nerve deficits. Motor grossly within normal limits. 5/5 muscle strength in bilateral upper and lower extremities. Normal speech. PSYCHIATRIC: Appropriate mood and affect; insight and judgment normal. Results Pending studies at discharge: Pending at discharge 06/02/18 09:50 Surgical [PTH] Routine Labs on day of discharge: Labs from last 24 hours 06/03/18 06/03/18 05:05 05:05 WBC 6.3 RBC 3.79 L Hgb 11.6 Hct 34.1 L MCV 90.1 MCH 30.8 MCHC 34.2 RDW 12.1 Plt Count 178 MPV 10.9 Sodium 143 Potassium 3.5 Chloride 110 H Carbon Dioxide 27.6 Anion Gap 5 BUN 3 L Creatinine 0.65 Estimated GFR Greater than 89 Random Glucose 95 Calcium 8.3 L Total Bilirubin 0.5 AST 7 L ALT 14 Alkaline Phosphatase 44 L Total Protein 5.9 L Albumin 3.0 L Impressions ITS Impressions Upper GI and Small Bowel X-Ray 06/01/18 00:00 CONCLUSION: Focally unremarkable upper GI and small bowel series with subjectively rapid bowel transit Discharge Plan Discharge Disposition Patient Disposition: Discharge Home Discharge Condition Condition: Stable Discharge Order Discharge Orders: Discharge Order (Routine); Ordered 06/02/18 Ordered By: Carlota Portillo Discharge Details Anticipated Discharge Date: 06/02/18 Physicians Team ED Provider: Audrey Morejon Primary Care Provider: Primary Stefani Trinh Attending Provider: Emiliano Ballesteros Other Providers: Jacky Horton Rxs /Orders / Referrals /Forms Prescriptions: New ondansetron HCl [Zofran] 4 mg tablet 4 mg PO DAILY 1 Days Qty: 7 RF: 0 prochlorperazine maleate [Compazine] 5 mg tablet 5 mg PO Q8H PRN (Reason: nausea and vomiting) Qty: 7 RF: 0 Continue omeprazole magnesium [Prilosec OTC] 20 mg Tablet,Delayed Release (Dr/Ec) 20 mg PO DAILY RF: 0 Referrals: Primary Care Stefani Wood [Primary Care Provider] - See Instructions ( Please call the physician's office to book A F/U W/ PCP IF YOU DO NOT HAVE ONE CALL [facility] AT [phone]) Jacky Horton MD [Physician] - 06/09/18 12:00 am ( Please call DR. TRIMBLE OFFICE AFTER D/C FOR F/U APT, OFFICE IS CURRENTLY CLOSED, CALL ) Discharge Instructions Patient Printed Instructions: Prochlorperazine (By mouth), Ondansetron (By mouth), Diet for Stomach Ulcers and Gastritis (GEN), Acute Nausea and Vomiting ( DC), Colonoscopy (DC) Status ED Status: Left Department Discharge Information Discharge Date/Time: 06/03/18 09:33
[2018-06-03 16:23] LABS: Chloride, Feces 63 mmol/L (See Comment); Osmolality, Feces 287 mOsm/kg (See Comment); Potassium, Feces 12 mmol/L; Sodium, Feces 117 mmol/L
== END 2018-06-03 09:33 | disposition home or self-care (01) ==
LOC: PHEDA 17:07 → PHED 17:07 → PHEDA 22:35 → PH3 22:49
PROVIDERS: ADMIT Hospitalist; ATTEND Hospitalist
PROC: COLONOS (2018-06-02 07:07)
DX: R11.2 Nausea with vomiting, unspecified; R19.7 Diarrhea, unspecified; R10.9 Unspecified abdominal pain
CPT/HCPCS: 74245; 80053; 81001; 82438; 83690; 83735; 84100; 84302; 84703; 84999; 85025; 85027; 87205; 87506; 88305; 90761; 90774; 90775; 96361; 96374; 96375; 96376; 99285; C8952; C9113; G0378; J0780; J2405; J2765; J7030